=== PATIENT | male | born 1990 | race Caucasian/White ===

== ENCOUNTER 2016-07-07 19:15 | Emergency (ER) | payer OTHER ==
[2016-07-07 19:22] VITALS: RESP 16
--- NOTE | 2016-07-07 19:27 | EDPHY ---
H & P Stated Complaint: Dog bite to the left wrist HPI/ROS: HPI CHIEF COMPLAINT: DOG BITE LEFT WRIST HISTORY OF PRESENT ILLNESS: This patient very pleasant 25-year-old male, denies any significant medical or surgical history tells me is not up-to-date on his tetanus shot will need this, he presents emergency room by private vehicle with a dog bite to his left wrist. Patient states he was at a dog park , his dog got into an altercation with another dog he tried to break it up and he sustained a 4 cm horizontal palmar side left wrist laceration not very deep. There is no arterial tendon involvement. His left hand is neurovascularly intact. Denies any other areas of injury. Past Medical History: No significant medical history Past Surgical History: No significant surgical history Social History: denies daily use drugs alcohol tobacco products Family History: Noncontributory ROS REVIEW OF SYSTEMS: A comprehensive 10 point review of systems is otherwise negative aside from elements mentioned in the history of present illness. Exam Constitutional triage nursing summary reviewed, vital signs reviewed, awake/ alert. Eyes normal conjunctivae and sclera, EOMI, PERRLA. HENT normal inspection, atraumatic, moist mucus membranes, no epistaxis, neck supple/ no meningismus, no raccoon eyes. Respiratory clear to auscultation bilaterally, normal breath sounds, no respiratory distress, no wheezing. Cardiovascular rate normal, regular rhythm, no murmur, no edema, distal pulses normal. Gastrointestinal soft, non-tender, no rebound, no guarding, normal bowel sounds, no distension, no pulsatile mass. Genitourinary no CVA tenderness. Musculoskeletal no midline vertebral tenderness, full range of motion, no calf swelling, no tenderness of extremities, no meningismus, good pulses, neurovascularly intact. Skin left hand: Palmar aspect: base of the wrist there is a horizontal 4 cm laceration somewhat superficial, no tendon injury, no arterial injury, neurovascularly intact good chinese medicine practitioner strength, good sensation, no signs of gross contamination, pink, warm, & dry, no rash, skin atraumatic. Neurologic awake, alert and oriented x 3, AAOx3, moves all 4 extremities equally, motor intact, sensory intact, CN II-XII intact, normal cerebellar, normal vision, normal speech. Psychiatric normal mood/affect. Heme/Lymph/Immune no lymphadenopathy. Differential Diagnosis: Dog bite to left wrist, laceration from dog bite, need for tetanus shot. Medical Decision Making: This patient will have his laceration copiously cleaned. He will need to be started on Augmentin due to dog bite, I will update his tetanus shot. If this laceration is gaping and wide after cleaning he may need suture however he does understand that we normally do not suture dog bites as it can cause further risk for infection. However this is a large gaping wound he does understand her place 2 very small sutures in to help approximate the edges however he will need to watch closely for infection. Does understand to return emergency room if develops any significant redness, drainage, pus, pain, fever or questions or concerns about his wound. Re-evaluation: After further discussion with this patient he requested that we did close his dog bite with 2 interrupted sutures. He understands this does put at further risk for infection he understands he needs to complete his antibiotics. He understands if he develops infection sinus infection he needs to seek medical attention re-evaluation. Laceration Repair Procedure: Verbal Consent was obtained, Under sterile conditions, The patient had lidocaine with epinephrine used approximately 5ccs to local anesthetize the left wrist 4cm Laceration. The wound was copiously irrigated with sterile fluid, the wound was explored for foreign bodies there were none visualized, the wound was explored with a sterile glove to the base. There are no deep structures involved, including no arterial injury. To interrupted 6.0 Prolene Sutures were placed in this patient's laceration. He had good close approximation of the wound edges. He Tolerated this well. this wound was copiously irrigated, the wound edges were loosely approximated there is not a tight seal this wound as it is a dog bite. Source: Patient - Personal History Current Tetanus/Diphtheria Vaccine: Unsure Current Tetanus Diphtheria and Acellular Pertussis (TDAP): Unsure - Medical/Surgical History Hx Asthma: No Hx Chronic Respiratory Disease: No Hx Diabetes: No Hx Cardiac Disease: No Hx Renal Disease: No Hx Cirrhosis: No Hx Alcoholism: No Hx HIV/AIDS: No Hx Splenectomy or Spleen Trauma: No - Social History Smoking Status: Never smoked Constitutional: Initial Vital Signs Temperature (C) 37.1 C 07/07/16 19:20 Heart Rate 97 07/07/16 19:20 Respiratory Rate 16 07/07/16 19:20 Blood Pressure 123/67 H 07/07/16 19:20 O2 Sat (%) 97 01/31/17 19:20 O2 Delivery Mode Room Air Allergies/Adverse Reactions: No Known Allergies Allergy (Unverified 07/07/16 19:20) Home Medications: Medication Instructions Recorded Amoxicillin/Clavulanate Pot 875 mg PO BID #14 tab 07/07/16 [Augmentin 875 MG TAB (*)] Departure - Departure Disposition: Home, Routine, Self-Care Clinical Impression: Dog bite Qualifiers: Encounter type: initial encounter Qualifier Code: (W54.0XXA) Bitten by dog, initial encounter Wrist laceration Qualifiers: Encounter type: initial encounter Laterality: left Qualifier Code: (S61.512A) Laceration without foreign body of left wrist, initial encounter Condition: Good Instructions: Animal Bite (ED), Laceration (ED), Care For Your Stitches (ED) Additional Instructions: 1. please keep your wound clean, dry, protected. 2.Watch for signs of infection this includes redness, drainage, fever, pain, swelling. 3. take antibiotic as prescribed please complete the entire course of antibiotics. 4. You will need your sutures removed in 12 days Prescriptions: Amoxicillin/Clavulanate Pot [Augmentin 875 MG TAB (*)] 875 mg PO BID #14 tab
[2016-07-07] MEDS ORDERED: TDAP ADULT 0.5 ML INJ (BOOSTRIX) IM ONE (19:32)
[2016-07-07] MEDS ORDERED: AMOXICILLIN/CLAVULANATE POT 875/125 MG TAB PO ONE (19:32)
[2016-07-07 20:05] VITALS: BP 117/79; PULSE 74; TEMP 98.4; O2SAT 96
== END 2016-07-07 20:05 | disposition home or self-care (01) ==
PROC: 0HQEXZZ Repair Left Lower Arm Skin, External Approach (ICD-10-PCS; principal; 2016-07-07)
DX: S61.512A Laceration without foreign body of left wrist, initial encounter (principal); Z23 Encounter for immunization; W54.0XXA Bitten by dog, initial encounter

== ENCOUNTER 2017-05-10 17:50 | Emergency (ER) | payer OTHER ==
[2017-05-10 18:01] VITALS: RESP 18; O2SAT 97
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
[2017-05-10 19:20] VITALS: BP 125/80; PULSE 65; TEMP 98.6
== END 2017-05-10 19:20 | disposition home or self-care (01) ==
DX: S06.0X0A Concussion without loss of consciousness, initial encounter (principal); S46.911A Strain of unspecified muscle, fascia and tendon at shoulder and upper arm level, right arm, initial encounter; S80.02XA Contusion of left knee, initial encounter; V18.0XXA Pedal cycle driver injured in noncollision transport accident in nontraffic accident, initial encounter; Y92.410 Unspecified street and highway as the place of occurrence of the external cause; Y99.8 Other external cause status; Y93.55 Activity, bike riding